=== PATIENT | male | born 1990 | race Caucasian/White ===

== ENCOUNTER 2017-06-14 00:51 | Inpatient (IN) | payer OTHER ==
[2017-06-14] VITALS (10 sets, daily range): BP systolic 114–148; BP diastolic 56–86; PULSE 79–103; RESP 16–20; TEMP 97.8–99.2; O2SAT 96–100
[~2017-06-14] VITALS: Ht 188 cm; Wt 84.0 kg
[~2017-06-14 00:51] MED LIST: DOXY100T
[2017-06-14] MEDS ORDERED: LACTULOSE SYRUP 20 GM/30 ML CUP PO PRN (01:45)
[2017-06-14] MEDS ORDERED: SODIUM CHLORIDE 0.9% FLUSH 10 ML FLUSH IV FLUSH PRN (01:45)
[2017-06-14] MEDS ORDERED: BISACODYL 10 MG SUPP RECTAL PRN (01:45)
[2017-06-14] MEDS ORDERED: SENNOSIDES 8.6 MG TAB PO PRN (01:45)
[2017-06-14] MEDS ORDERED: NALOXONE HCL 0.4 MG/ML AMP IV PUSH PRN (01:45)
[2017-06-14] MEDS ORDERED: ACETAMINOPHEN 325 MG TAB PO PRN (01:45)
[2017-06-14] MEDS ORDERED: MAGNESIUM HYDROXIDE SUSP 30 ML CUP PO PRN (01:45)
[2017-06-14 02:11] LABS: AUTOMATED NEUTROPHIL # 12.6 TH/MM3 (1.8-7.7); BASOPHIL # 0.1 TH/MM3 (0-0.2); BASOPHIL % 0.4 % (0.0-2.0); HEMATOCRIT 44.4 % (39.0-51.0); HEMOGLOBIN 15.6 GM/DL (13.0-17.0); LYMPH % 11.1 % (9.0-44.0); LYMPHOCYTE # 1.7 TH/MM3 (1.0-4.8); MEAN CELL VOLUME 87.6 FL (80.0-100.0); MEAN CORPUSCULAR HEMOGLOBIN 30.8 PG (27.0-34.0); MEAN CORPUSCULAR HGB CONC 35.1 % (32.0-36.0); MEAN PLATELET VOLUME 7.8 FL (7.0-11.0); MONO % 7.7 % (0.0-8.0); MONOCYTE # 1.2 TH/MM3 (0-0.9); NEUT % 80.8 % (16.0-70.0); PLATELET COUNT 234 TH/MM3 (150-450); RED BLOOD COUNT 5.07 MIL/MM3 (4.50-5.90); RED CELL DISTRIBUTION WIDTH 12.6 % (11.6-17.2); WHITE BLOOD COUNT 15.6 TH/MM3 (4.0-11.0)
[2017-06-14] MEDS: SODIUM CHLOR 0.9% 1000 ML INJ 1,000 ML IV SCH ×3 (02:15→20:35)
[2017-06-14 02:22] LABS: PROTHROMBIN TIME - PATIENT 10.5 SEC (9.8-11.6)
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
[2017-06-14] MEDS: HYDROmorphone HCL PF 2 MG/ML VIAL IV PUSH PRN ×2 (02:25→07:39)
[2017-06-14 02:39] LABS: ALKALINE PHOSPHATASE 68 U/L (45-117); TOTAL BILIRUBIN ADULT 1.2 MG/DL (0.2-1.0); TOTAL PROTEIN 7.9 GM/DL (6.4-8.2)
[2017-06-14 02:43] LABS: ALBUMIN 4.4 GM/DL (3.4-5.0); ALT (GPT) 33 U/L (12-78); AST (GOT) 18 U/L (15-37); BICARBONATE 25.6 MEQ/L (21.0-32.0); BLOOD UREA NITROGEN 10 MG/DL (7-18); CALCIUM 8.9 MG/DL (8.5-10.1); CHLORIDE 105 MEQ/L (98-107); CREATININE 0.95 MG/DL (0.60-1.30); GLOMERULAR FILTRATION RATE 94 ML/MIN (>89); GLUCOSE,RANDOM 100 MG/DL (74-106); SODIUM (NA) 139 MEQ/L (136-145)
[2017-06-14] MEDS: ONDANSETRON HCL 4 MG/2 ML VIAL IVP PRN ×2 (07:38→14:47)
[2017-06-14] MEDS ORDERED: LIDOCAINE HCL 1% 20 ML VIAL INFIL ONE (09:15)
[2017-06-14] MEDS ORDERED: MIDAZOLAM HCL 2 MG/2 ML VIAL IV PUSH ONE (09:15)
[2017-06-14] MEDS ORDERED: LIDOCAINE 1%/EPINEPHrine 1:100,000 SOLN 30 ML VIAL ONE (09:24)
[2017-06-14] MEDS ORDERED: PROPARACAINE HCL 0.5% OPHT SOLN 15 ML BTL RIGHT EYE ONE (09:30)
[2017-06-14] MEDS ORDERED: BACITRACIN OPHT OINT 3.5 GM TUBO RIGHT EYE ONE (11:15)
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
[2017-06-14] MEDS ORDERED: BALANCED SALT SOLN OPHT IRRIG 15 ML BTL RIGHT EYE ONE (11:45)
[2017-06-14] MEDS: DOCUSATE SODIUM 50 MG/SENNA 8.6 MG TAB PO SCH ×2 (11:54→20:32)
[2017-06-14] MEDS: SODIUM CHLORIDE 0.9% FLUSH 10 ML FLUSH IV FLUSH SCH ×2 (11:55→20:35)
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
--- NOTE | 2017-06-14 13:52 | HHI.PR ---
Addendum to Inpatient Note Addendum Reason: Additional Documentation Additional Information The patient just had his procedure done by plastic surgery. He was in increased pain. He was waiting for her room. Discussed with his family. Start IV Toradol and p.o. oxycodone. Discharge once pain control is improved. Augmentin was recommended by ophthalmology, however, the patient is allergic to insulin so will cover with a course of p.o. clindamycin. Anticipate discharge home in the morning. He will follow up with plastic surgery and ophthalmology as an outpatient. Lamonte Dos Santos DO Jun 14, 2017 13:52
[2017-06-14] MEDS: CLINDAMYCIN 150 MG CAP PO SCH ×2 (14:44→20:30)
[2017-06-14] MEDS ORDERED: KETOROLAC TROMETHAMINE 30 MG/ML (IVP) VIAL IV PUSH ONE (15:00)
[2017-06-14] MEDS: LACTOBACILLUS ACIDOPHILUS 1 GM PACKET PO SCH ×2 (15:00→18:00)
[2017-06-14] MEDS ORDERED: ACETAMINOPHEN/HYDROcodone 325 MG/5 MG TAB PO PRN (18:15)
[2017-06-14] MEDS: ACETAMINOPHEN/HYDROcodone 325 MG/10 MG TAB PO PRN (20:31)
[2017-06-15] VITALS: BP 120/65; PULSE 89; RESP 20; TEMP 98.5; O2SAT 99
[2017-06-15] MEDS: CLINDAMYCIN 150 MG CAP PO SCH (05:23)
[2017-06-15] MEDS: ACETAMINOPHEN/HYDROcodone 325 MG/10 MG TAB PO PRN (05:25)
[2017-06-15] MEDS: SODIUM CHLOR 0.9% 1000 ML INJ 1,000 ML IV SCH (07:37)
[2017-06-15 08:00] VITALS: BP 119/58; PULSE 81; RESP 16; TEMP 98.2; O2SAT 97
[2017-06-15] MEDS: DOCUSATE SODIUM 50 MG/SENNA 8.6 MG TAB PO SCH (08:17)
[2017-06-15] MEDS: SODIUM CHLORIDE 0.9% FLUSH 10 ML FLUSH IV FLUSH SCH (08:18)
[2017-06-15] MEDS: LACTOBACILLUS ACIDOPHILUS 1 GM PACKET PO SCH (08:20)
[2017-06-15] MEDS ORDERED: BACIOIN6 RIGHT EYE ×2 (09:28→09:41)
[2017-06-15] MEDS ORDERED: LACTG PO (09:28)
[2017-06-15] MEDS ORDERED: CLIN150 PO (09:28)
[2017-06-15] MEDS ORDERED: PERC5TAB12 PO (09:28)
[2017-06-15] MEDS ORDERED: IBUP1TAB7 PO (09:28)
--- NOTE | 2017-06-15 09:33 | HHI.DCPOC ---
Discharge Care Plan Diagnosis: (1) Foreign body of right orbit (2) Eyelid laceration, right Goals to Promote Your Health * To prevent worsening of your condition and complications * To maintain your health at the optimal level Directions to Meet Your Goals Take your medications as prescribed Follow your dietary instruction Follow activity as directed Keep your appointments as scheduled Take your immunizations and boosters as scheduled If your symptoms worsen call your PCP, if no PCP go to Urgent Care Center or Emergency Room Smoking is Dangerous to Your Health. Avoid second hand smoke Call the 24-hour hour crisis hotline for domestic abuse at Lamonte Dos Santos DO Jun 15, 2017 09:33
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
[2017-06-15] MEDS ORDERED: IBUPROFEN 800 MG TAB PO SCH (10:00)
[2017-06-15 10:29] VITALS: RESP 18
[2017-06-15 10:49] LABS: HEMATOCRIT 40.5 % (39.0-51.0); HEMOGLOBIN 14.5 GM/DL (13.0-17.0); MEAN CORPUSCULAR HEMOGLOBIN 31.4 PG (27.0-34.0); MEAN CORPUSCULAR HGB CONC 35.7 % (32.0-36.0); MEAN PLATELET VOLUME 7.8 FL (7.0-11.0); PLATELET COUNT 186 TH/MM3 (150-450); RED BLOOD COUNT 4.61 MIL/MM3 (4.50-5.90); RED CELL DISTRIBUTION WIDTH 12.9 % (11.6-17.2); WHITE BLOOD COUNT 7.8 TH/MM3 (4.0-11.0)
== END 2017-06-15 11:26 | disposition home or self-care (01) | DRG 115 ==
LOC: NEPE 00:51 → NEDA 03:24 → NEDH 05:53 → N07B 14:06
PROVIDERS: ADMIT Hospitalist; ATTEND Hospitalist
PROC: 08BN0ZZ Excision of Right Upper Eyelid, Open Approach (ICD-10-PCS; principal; 2017-06-14)
PROC: 0KQ10ZZ Repair Facial Muscle, Open Approach (ICD-10-PCS; 2017-06-14)
PROC: 08C Eye, Extirpation (ICD-10-PCS; 2017-06-14)
PROC: 08C Eye, Extirpation (ICD-10-PCS; 2017-06-14)
PROC: 08QQXZZ Repair Right Lower Eyelid, External Approach (ICD-10-PCS; 2017-06-14)
PROC: 08QNXZZ Repair Right Upper Eyelid, External Approach (ICD-10-PCS; 2017-06-14)
DX: S01.121A Laceration with foreign body of right eyelid and periocular area, initial encounter (principal); D72.829 Elevated white blood cell count, unspecified; V44.5XXA Car driver injured in collision with heavy transport vehicle or bus in traffic accident, initial encounter; Y92.410 Unspecified street and highway as the place of occurrence of the external cause; Z88.0 Allergy status to penicillin
CPT/HCPCS: 80053; 85025; 85027; 85610; 99283; E0113; J1170; J1885; J2250; J2405; J7030